=== PATIENT | male | born 1950 | race Caucasian/White ===

== ENCOUNTER → 2018-12-10 | Outpatient (CLI) | payer MEDICARE, OTHER ==
[~2018-12-10] MED LIST: ASPI81EC PO; ATEN25 PO; FLUSAL5005 IH; HYDACE5 PO; Januvia PO; LISI5 PO; METF500 PO; TESTOSTERONE; [UNRECOGNIZED DRUG - CODE] PO
== END | disposition home or self-care (01) ==
LOC: PLD 13:45 → LAB SHORT 13:45
DX: L57.0 Actinic keratosis (principal); D22.5 Melanocytic nevi of trunk
CPT/HCPCS: 88305

== ENCOUNTER → 2018-12-23 | Outpatient (CLI) | payer MEDICARE, OTHER | END | disposition home or self-care (01) | LOC: LAB SHORT 07:55 → PLD 07:55 | DX: D48.5 Neoplasm of uncertain behavior of skin (principal) | CPT/HCPCS: 88304 ==

== ENCOUNTER 2022-01-09 06:36 | Day surgery (SDC) | payer MEDICARE, BC ==
[~2022-01-09] VITALS: Ht 172.7 cm; Wt 98.0 kg
[~2022-01-09 06:36] MED LIST changes: +ALBU90OI INH; -ASPI81EC PO; +ATOR40TA PO; +Aspir 8181 MG PO; +BENADRYL25 M1 PO; +Cialis5 MG PO; +GLIP10 PO; +HYDCHL25 PO; +LOSA50 PO; +MAGNESIUM OXID500 MG PO; +MULTI-VITAMIN1 EAC2 PO; +NITR.4SL SL; +Norco 5-325 Ta1 EACH PO; +ORAZINC220 MG PO; +POTA10T PO; +Pulmicort Fle180 MCG INH; +VALA500 PO; +VITAMIN D31000 UNI1 PO
--- NOTE | 2022-01-09 10:30 | NUR ---
PT UP TO THE BATHROOM /C SBA. TOLERATED WELL. -BLEEDING OR SWELLING R GROIN AREA.
--- NOTE | 2022-01-09 10:46 | NUR ---
PT AND VERBALIZED UNDERSTANDING OF WRITTEN AND VERBAL D/C INST. IV REMOVED. PT TAKEN OUT OF THE HRT CENTER VIA W/C.
== END 2022-01-09 11:00 | disposition home or self-care (01) ==
LOC: MHTC 06:36
DX: I72.8 Aneurysm of other specified arteries (principal); E11.69 Type 2 diabetes mellitus with other specified complication; I10 Essential (primary) hypertension; J44.9 Chronic obstructive pulmonary disease, unspecified
CPT/HCPCS: 36245; 36246; 37244; 75726; 75774; 76937; 99152; 99153; C1760; C1769; C1887; C1894; J1644; J2250; J3010; J7030; J7050; Q9967

== ENCOUNTER 2022-06-06 22:07 | Emergency (ER) | payer MEDICARE, BC ==
[~2022-06-06] VITALS: Ht 172.7 cm; Wt 102.1 kg
== END 2022-06-06 23:06 | disposition home or self-care (01) ==
LOC: ER 22:07
DX: S51.811A Laceration without foreign body of right forearm, initial encounter (principal); W26.0XXA Contact with knife, initial encounter; E11.9 Type 2 diabetes mellitus without complications; J44.9 Chronic obstructive pulmonary disease, unspecified; Z79.82 Long term (current) use of aspirin; Z79.899 Other long term (current) drug therapy
CPT/HCPCS: 12004; 99282-25

== ENCOUNTER 2022-11-09 17:55 | Emergency (ER) | payer MEDICARE, BC ==
[~2022-11-09] VITALS: Ht 172.7 cm; Wt 97.5 kg
[2022-11-09] MEDS ORDERED: CODITUSSIN AC473 M1 PO (20:10)
== END 2022-11-09 20:07 | disposition home or self-care (01) ==
LOC: ER 17:55
DX: R05.9 Cough, unspecified (principal); J44.9 Chronic obstructive pulmonary disease, unspecified; E11.9 Type 2 diabetes mellitus without complications; Z79.899 Other long term (current) drug therapy; Z79.82 Long term (current) use of aspirin; Z79.84 Long term (current) use of oral hypoglycemic drugs
CPT/HCPCS: 71046

== ENCOUNTER → 2025-03-25 | Outpatient (CLI) | payer MEDICARE, OTHER ==
[~2025-03-25] MED LIST changes: +CODITUSSIN AC473 M1 PO; +HYDR1TAB94 PO; +METO10 PO; +TAMS.4ER PO
[2025-03-25 13:58] LABS: BASOPHILS ABSOLUTE AUTO 0.03 K/mm3 (0.00-0.23); BASOPHILS PERCENT AUTO 0 % (0-2); EOSINOPHILS ABSOLUTE AUTO 0.11 K/mm3 (0.00-0.68); EOSINOPHILS PERCENT AUTO 2 % (0-6); Hematocrit 49.5 % (37.0-53.0); Hemoglobin 16.8 g/dL (13.5-17.5); IMMATURE GRAN ABSOLUTE AUTO 0.03 K/mm3 (0.00-0.10); IMMATURE GRAN PERCENT AUTO 0 % (0-1); LYMPHOCYTES ABSOLUTE AUTO 1.49 K/mm3 (0.84-5.20); LYMPHOCYTES PERCENT AUTO 20 % (21-46); MONOCYTES ABSOLUTE AUTO 0.47 K/mm3 (0.16-1.47); MONOCYTES PERCENT AUTO 6 % (4-13); Mean Corpuscular HGB 31.1 pg (26.0-34.0); Mean Corpuscular HGB Conc 33.9 g/dL (31.5-36.5); Mean Corpuscular Volume 92 fL (80-100); Mean Platelet Volume 10.2 fL (9.1-12.4); NEUTROPHILS ABSOLUTE AUTO 5.39 K/mm3 (1.96-9.15); NEUTROPHILS PERCENT AUTO 72 % (41-73); Platelet Count 219 K/mm3 (150-400); RDW Coefficient Variation 13.2 % (11.7-14.2); Red Blood Cell Count 5.41 M/mm3 (4.30-5.90); White Blood Cell Count 7.52 K/mm3 (4.00-11.30)
[2025-03-25 14:06] LABS: Bun/Creatinine Ratio 16.7 (12.0-20.0); Calcium, Blood 10.4 mg/dL (8.5-10.1); Creatinine, Blood 1.32 mg/dL (0.60-1.20); Potassium, Blood 4.8 mmol/L (3.5-5.5)
== END ==
LOC: LAB 13:54 → LAB SHORT 13:54
PROVIDERS: Chiropractor
DX: R10.32 Left lower quadrant pain (principal); R73.9 Hyperglycemia, unspecified
CPT/HCPCS: 80048; 83036; 85025